=== PATIENT | male | born 1980 | race Caucasian/White ===

== ENCOUNTER 2019-09-01 15:06 | Emergency (ER) | payer OTHER ==
[~2019-09-01] VITALS: Ht 185.4 cm; Wt 99.8 kg
[2019-09-01 15:14] VITALS: BP 140/94
== END 2019-09-01 15:46 ==
LOC: M.ERS 15:06
DX: F41.9 Anxiety disorder, unspecified (principal); F17.210 Nicotine dependence, cigarettes, uncomplicated